=== PATIENT | male | born 1980 | race Caucasian/White ===

== ENCOUNTER 2023-06-29 10:15 | Emergency (ER) | payer OTHER ==
[~2023-06-29] VITALS: Ht 170.2 cm; Wt 74.4 kg
[2023-06-29 10:23] VITALS: BP 122/83; PULSE 72; RESP 18; TEMP 97.4; O2SAT 99
[2023-06-29 12:28] LABS: BASOPHILS % (AUTO) 0.4 % (0.0-2.0); EOSINOPHILS # (AUTO) 0.2 K/uL (0-0.4); EOSINOPHILS % (AUTO) 3.5 % (0.0-4.0); HEMATOCRIT 42.4 % (36-52); HEMOGLOBIN 15.1 g/dL (12.0-18.0); LYMPHOCYTES # (AUTO) 1.7 K/uL (2.0-11.5); LYMPHOCYTES % (AUTO) 30.6 % (20.5-51.1); MEAN CORPUSCULAR HEMOGLOBIN 31 pg (27-31); MEAN CORPUSCULAR HGB CONC 36 g/dL (33-37); MEAN CORPUSCULAR VOLUME 86.9 fL (80-94); MONOCYTES # (AUTO) 0.5 K/uL (0.8-1.0); MONOCYTES % (AUTO) 9.1 % (1.7-9.3); NEUTROPHILS # (AUTO) 3.1 K/uL (1.8-7.7); NEUTROPHILS % (AUTO) 56.4 % (42.2-75.2); PLATELET COUNT (AUTO) 249 K/uL (140-450); RED BLOOD CELL COUNT(AUTO) 4.88 MIL/uL (4.20-6.10); RED CELL DISTRIBUTION WIDTH 12.6 % (11.6-13.7); WHITE BLOOD COUNT (AUTO) 5.5 K/uL (4.8-10.8)
[2023-06-29] MEDS: ACETAMINOPHEN EXTRA STRENGTH 500 MG TAB PO ONE (12:54)
[2023-06-29 13:39] LABS: ANION GAP 12.1 (8-16); CALCIUM 8.5 mg/dL (8.5-10.1); CARBON DIOXIDE 27.9 mmol/L (21-32); CREATININE 0.8 mg/dL (0.6-1.3)
[2023-06-29 13:47] LABS: ALBUMIN 3.9 g/dL (3.4-5.0); BILIRUBIN,DIRECT 0.1 mg/dL (0.0-0.3); TOTAL BILIRUBIN 0.5 mg/dL (0.0-1.0); TOTAL PROTEIN, SERUM 7.3 g/dL (6.4-8.2)
[2023-06-29] MEDS ORDERED: NAPR-337 PO (14:58)
[2023-06-29] MEDS ORDERED: DICY20TA19 PO (14:58)
[2023-06-29 15:05] VITALS: BP 107/72; PULSE 67; RESP 17; TEMP 97.4; O2SAT 98
== END 2023-06-29 15:05 | disposition home or self-care (01) ==
LOC: MED 10:15
DX: R10.31 Right lower quadrant pain (principal); R10.32 Left lower quadrant pain; Z79.1 Long term (current) use of non-steroidal anti-inflammatories (NSAID); Z79.899 Other long term (current) drug therapy; R51.9 Headache, unspecified
CPT/HCPCS: 36415; 80048; 80076; 81002; 83690; 85025; 99284

== ENCOUNTER 2023-08-04 09:25 | Emergency (ER) | payer OTHER ==
[~2023-08-04] VITALS: Ht 167.6 cm; Wt 72.6 kg
[~2023-08-04 09:25] MED LIST: DICY20TA19 PO; NAPR-337 PO
[2023-08-04 09:34] VITALS: BP 135/83; PULSE 86; RESP 20; TEMP 98; O2SAT 99
[2023-08-04] MEDS ORDERED: HYDR25SU37 RC (09:47)
[2023-08-04] MEDS ORDERED: MIRABULK PO (09:47)
[2023-08-04 09:57] VITALS: BP 135/83; PULSE 86; RESP 20; TEMP 98; O2SAT 99
[2023-08-04 10:18] LABS: APPEARANCE,URINE CLEAR (CLEAR); BILIRUBIN,URINE NEGATIVE (NEGATIVE); BLOOD, URINE NEGATIVE (NEGATIVE); COLOR,URINE YELLOW (YELLOW); LEUKOCYTE ESTERASE ,URINE NEGATIVE (NEGATIVE); NITRITE, URINE NEGATIVE (NEGATIVE); PH,URINE 5.5 (5.0-9.0); PROTEIN,URINE NEGATIVE (NEGATIVE); UGLUCOSE NEGATIVE (NEGATIVE); UROBILINOGEN,URINE 0.2 EU/dL (0.2 - 1)
== END 2023-08-04 09:58 | disposition home or self-care (01) ==
LOC: MED 09:25
DX: K57.90 Diverticulosis of intestine, part unspecified, without perforation or abscess without bleeding (principal); K59.00 Constipation, unspecified; Z79.1 Long term (current) use of non-steroidal anti-inflammatories (NSAID); Z79.899 Other long term (current) drug therapy
CPT/HCPCS: 81003; 99283